=== PATIENT | female | born 1960 | race Caucasian/White ===

== ENCOUNTER 2018-04-25 10:02 | Emergency (ER) | payer OTHER ==
[~2018-04-25] VITALS: Ht 167.6 cm; Wt 61.2 kg
[2018-04-25] MEDS ORDERED: HYDRODIURIL12.5 MG (10:23)
[2018-04-25] MEDS ORDERED: PAXIL30 MG (10:23)
[2018-04-25] MEDS ORDERED: PREVACID30 MG (10:23)
[2018-04-25] MEDS ORDERED: [UNRECOGNIZED DRUG - OTHER] (10:24)
== END 2018-04-25 15:08 | disposition home or self-care (01) ==
LOC: ER 10:02
DX: M79.672 Pain in left foot (principal); G89.11 Acute pain due to trauma